=== PATIENT | female | born 1995 | race Caucasian/White ===

== ENCOUNTER 2022-07-26 14:03 | Outpatient (CLI) | payer BC, SELFPAY | END 2022-07-26 14:04 | disposition home or self-care (01) | LOC: NFLDREF 07-28 06:33 | PROVIDERS: PCP Obstetrics & Gynecology; Referring Provider Obstetrics & Gynecology; Visit Provider Obstetrics & Gynecology | DX: Z34.91 Encounter for supervision of normal pregnancy, unspecified, first trimester (principal) | CPT/HCPCS: 84702 ==

== ENCOUNTER 2022-07-28 15:46 | Outpatient (CLI) | payer BC, SELFPAY | END 2022-07-28 15:47 | disposition home or self-care (01) | PROVIDERS: PCP Obstetrics & Gynecology; Referring Provider Obstetrics & Gynecology; Visit Provider Obstetrics & Gynecology | DX: Z34.90 Encounter for supervision of normal pregnancy, unspecified, unspecified trimester (principal); O02.0 Blighted ovum and nonhydatidiform mole | CPT/HCPCS: 84702 ==

== ENCOUNTER 2022-08-03 07:11 | Outpatient (CLI) | payer BC, SELFPAY ==
--- NOTE | 2022-08-03 07:15 | CRLHL7_ITS ---
For Patients: As a result of the Century Cures Act, medical imaging exams and procedure reports are released immediately into your electronic medical record. You may view this report before your referring provider. If you have questions, please contact your health care provider. INDICATION: First trimester scan, establish dates. COMPARISON: No comparison exams at [facility] or [facility]. TECHNIQUE: Real-time young-scale imaging of the pelvis was performed. FINDINGS: Intrauterine gestational sac is present with a mean sac diameter of 14 millimeters, 6 weeks 2 days. 3 millimeter yolk sac is present. No pole. Ovaries appear normal. 2 cm corpus luteal cyst left ovary. Left ovary measures 4.0 x 2.3 x 2.5 cm. Right ovary measures 4.8 x 1.6 x 2.4 cm. No excess pelvic free fluid. No ectopic. IMPRESSION: Intrauterine gestational sac measuring 6 weeks 2 days without pole. Follow-up in 11-14 days recommended. Dictated by Tip Ward MD @ 08/03/2022 11:34:50 AM (Electronically Signed)
== END 2022-08-03 07:12 | disposition home or self-care (01) ==
LOC: US 07:13
PROVIDERS: Visit Provider Obstetrics & Gynecology
DX: Z34.91 Encounter for supervision of normal pregnancy, unspecified, first trimester (principal); Z3A.01 Less than 8 weeks gestation of pregnancy; E28.2 Polycystic ovarian syndrome
CPT/HCPCS: 76817; 84443

== ENCOUNTER 2022-08-13 07:10 | Outpatient (CLI) | payer BC, SELFPAY ==
--- NOTE | 2022-08-13 07:15 | CRLHL7_ITS ---
For Patients: As a result of the Century Cures Act, medical imaging exams and procedure reports are released immediately into your electronic medical record. You may view this report before your referring provider. If you have questions, please contact your health care provider. INDICATION: First trimester scan, establish dates. COMPARISON: 08/03/2022 TECHNIQUE: Real-time young-scale imaging of the pelvis was performed. FINDINGS: Sonographic imaging demonstrates a single living intrauterine gestation. The embryo demonstrates a regular cardiac rate measuring 152 beats per minute. The embryo`s crown-rump length measurement of 0.92 cm corresponds to a gestational age of 7 weeks 0 days with a sonographic due date of 04/01/2023. There is a normal-appearing yolk sac. There are no gross abnormalities noted within the embryo at this early state of development. The gestational sac has a normal appearance. There is no evidence of a perigestational hemorrhage. The amount of fluid within the sac appears appropriate for gestational age. IMPRESSION: Single living intrauterine measuring 7 weeks 0 days and sonographic due date 04/01/2023. Dictated by Tip Ward MD @ 08/13/2022 9:19:44 AM (Electronically Signed)
== END 2022-08-13 07:11 | disposition home or self-care (01) ==
PROVIDERS: Visit Provider Registered Nurse
DX: Z34.91 Encounter for supervision of normal pregnancy, unspecified, first trimester (principal); Z3A.01 Less than 8 weeks gestation of pregnancy
CPT/HCPCS: 76817; 86703; 86803; 86850; 86900; 86901; 87086; 87340

== ENCOUNTER 2022-08-13 09:05 | Outpatient (CLI) | payer BC, SELFPAY | END 2022-08-13 09:06 | disposition home or self-care (01) | PROVIDERS: Visit Provider Advanced Practice Midwife | DX: Z34.91 Encounter for supervision of normal pregnancy, unspecified, first trimester (principal); Z3A.09 9 weeks gestation of pregnancy | CPT/HCPCS: 86592; 86703; 86762; 86787; 86803; 86850; 86900; 86901; 87086; 87340 ==

== ENCOUNTER 2022-11-19 13:09 | Outpatient (CLI) | payer BC, SELFPAY ==
--- NOTE | 2022-11-19 13:00 | CRLHL7_ITS ---
For Patients: As a result of the Century Cures Act, medical imaging exams and procedure reports are released immediately into your electronic medical record. You may view this report before your referring provider. If you have questions, please contact your health care provider. INDICATION: Evaluate anatomy. COMPARISON: 08/13/2022 TECHNIQUE: Real time young scale imaging of the fetus was performed as well as color Doppler analysis of the umbilical vessels. FINDINGS: Sonographic imaging demonstrates a single living intrauterine gestation. Fetus demonstrates a regular cardiac rate of 159 beats per minute. Fetus has a vertex position. The placenta lies anteriorly without evidence of placenta previa. The placental edge is more than 5 cm from the internal cervical os. Amniotic fluid volume appears normal. Single deepest vertical pocket: 4.3 cm. The cervix is closed and measures 4.6 cm in length. The composite ultrasound gestational age is calculated at 21 weeks 5 days with an estimated sonographic due date of 03/27/2023. The estimated weight is 490 grams which lies at the 96th %. The following biometric measurements were obtained: Biparietal diameter: 5.3 cm/22 weeks 0 days 86th% Head circumference: 19.5 cm/21 weeks 5 days 73rd% Abdominal circumference: 18.1 cm/23 weeks 0 days 93rd% Femur length: 3.7 cm/21 weeks 4 days 62nd% The HC/AC ratio measures: 1.08 range (1.06-1.24) On anatomic survey, there is a normal appearance of the cavum septi pellucidi, cisterna magna and cerebellum. The lateral ventricles are not well evaluated due to position. The nose, lips, and facial profile appear normal. The cervical, thoracic and lumbar spine are well visualized and appear normal. There is incomplete visualization of the cardiac structures due to position. The diaphragm and stomach appear normal. The kidneys and bladder also appear normal. There is a normal three-vessel cord and cord insertion site. The four extremities appear normal. IMPRESSION: Concordance of clinical and sonographic dating. Incomplete visualization of the cerebral ventricles and cardiac structures due to position. Short-term follow-up recommended. Remainder of the anatomic survey is normal. Dictated by Tip Ward MD @ 11/20/2022 10:08:58 AM (Electronically Signed)
== END 2022-11-19 13:10 | disposition home or self-care (01) ==
LOC: US 13:10
PROVIDERS: Visit Provider Advanced Practice Midwife
DX: Z34.92 Encounter for supervision of normal pregnancy, unspecified, second trimester (principal); Z3A.21 21 weeks gestation of pregnancy
CPT/HCPCS: 76805

== ENCOUNTER 2022-12-11 08:46 | Outpatient (CLI) | payer BC, SELFPAY ==
--- NOTE | 2022-12-11 08:45 | CRLHL7_ITS ---
For Patients: As a result of the Century Cures Act, medical imaging exams and procedure reports are released immediately into your electronic medical record. You may view this report before your referring provider. If you have questions, please contact your health care provider. INDICATION: Follow-up missed anatomy COMPARISON: 11/19/2022 TECHNIQUE: Real time young scale imaging of the fetus was performed. FINDINGS: Sonographic imaging demonstrates a single living intrauterine gestation. Fetus demonstrates a regular cardiac rate of 159 beats per minute. Fetus has a vertex position. The placenta lies anteriorly. Amniotic fluid volume appears normal. Single deepest vertical pocket: 6.9 cm. Normal cerebral ventricle. There is a normal four-chamber heart view and the left and right ventricular outflow tracts appear normal. IMPRESSION: Normal cerebral ventricle and heart views. Dictated by Tip Ward MD @ 12/11/2022 9:50:44 AM (Electronically Signed)
== END 2022-12-11 08:47 | disposition home or self-care (01) ==
LOC: US 08:47
PROVIDERS: Visit Provider Advanced Practice Midwife
DX: O35.BXX0 Maternal care for other (suspected) fetal abnormality and damage, fetal cardiac anomalies, not applicable or unspecified (principal)
CPT/HCPCS: 76815; 76816

== ENCOUNTER 2023-01-03 10:15 | Outpatient (CLI) | payer BC, SELFPAY | END 2023-01-03 10:16 | disposition home or self-care (01) | LOC: NFLDREF 01-09 05:52 | PROVIDERS: Visit Provider Registered Nurse | DX: Z34.92 Encounter for supervision of normal pregnancy, unspecified, second trimester (principal) | CPT/HCPCS: 86592 ==

== ENCOUNTER 2023-02-04 13:01 | Outpatient (CLI) | payer BC, SELFPAY ==
--- NOTE | 2023-02-04 13:00 | CRLHL7_ITS ---
For Patients: As a result of the Century Cures Act, medical imaging exams and procedure reports are released immediately into your electronic medical record. You may view this report before your referring provider. If you have questions, please contact your health care provider. INDICATION: SIZE GREATER THAN DATES, CHECK GROWTH COMPARISON: 12/11/2022 TECHNIQUE: Real time young scale imaging of the fetus was performed. FINDINGS: Sonographic imaging demonstrates a single living intrauterine gestation. Fetus demonstrates a regular cardiac rate of 144 beats per minute. Fetus has a vertex position. The placenta lies anteriorly. Amniotic fluid volume appears normal and there is a single deepest vertical pocket: 6.5 cm. The estimated weight is 2773gm which lies at the greater than 97th %. On the prior OB ultrasound exam dated 11/19/2022 the estimated weight was at the 96th%. BPD and AC greater than 97th percentile. HC 91st percentile. FL 93rd percentile. The HC/AC ratio measures 0.96 range (0.93-1.09). IMPRESSION: Sonographic gestational age 35 weeks 4 days and sonographic due date of 03/07/2023. Sonographic age is 25 days ahead of the clinical age. Estimated weight greater than 97th percentile. BPD and AC greater than 97th percentile. Dictated by Tip Ward MD @ 02/05/2023 8:34:25 AM (Electronically Signed)
== END 2023-02-04 13:02 | disposition home or self-care (01) ==
LOC: US 13:01
PROVIDERS: Visit Provider Obstetrics & Gynecology
DX: O36.63X0 Maternal care for excessive fetal growth, third trimester, not applicable or unspecified (principal); Z3A.35 35 weeks gestation of pregnancy
CPT/HCPCS: 76816

== ENCOUNTER 2023-02-28 15:59 | Outpatient (CLI) | payer BC, SELFPAY ==
--- NOTE | 2023-02-28 16:00 | CRLHL7_ITS ---
For Patients: As a result of the Century Cures Act, medical imaging exams and procedure reports are released immediately into your electronic medical record. You may view this report before your referring provider. If you have questions, please contact your health care provider. INDICATION: GROWTH, MEASURING LARGE FOR DATES COMPARISON: 12/11/2022 TECHNIQUE: Real time young scale imaging of the fetus was performed. FINDINGS: Sonographic imaging demonstrates a single living intrauterine gestation. Fetus demonstrates a regular cardiac rate of 150 beats per minute. Fetus has a vertex position. The placenta lies anteriorly. Amniotic fluid volume appears normal and there is a single deepest vertical pocket: 7.9 cm. The estimated weight is 4077gm which lies at the greater than 97th %. On the prior OB ultrasound exam dated 11/19/2022 the estimated weight was at the 96th%. BPD and AC greater than 97th percentile. HC 94th percentile. FL 96th percentile. The HC/AC ratio measures 0.89 range (0.88-1.06). IMPRESSION: Sonographic gestational age 38 weeks 3 days and sonographic due date of 03/11/2023. Sonographic age 3 weeks ahead of the clinical age. Estimated weight greater than 97th percentile. Abdominal circumference and BPD greater than 97th percentile. Dictated by Tip Ward MD @ 03/01/2023 12:30:24 PM (Electronically Signed)
== END 2023-02-28 16:00 | disposition home or self-care (01) ==
LOC: US 16:00
PROVIDERS: Visit Provider Obstetrics & Gynecology
DX: O36.63X0 Maternal care for excessive fetal growth, third trimester, not applicable or unspecified (principal); Z3A.38 38 weeks gestation of pregnancy
CPT/HCPCS: 76816

== ENCOUNTER 2023-03-02 17:05 | Inpatient (IN) | payer BC, SELFPAY ==
[2023-03-02] VITALS (40 sets, daily range): BP systolic 87–160; BP diastolic 54–101; PULSE 78–134; RESP 16–146; TEMP 36.4–37.1; O2SAT 95–100; BMI 43.5
[2023-03-02 13:36] LABS: Hemoglobin* 13.1 gm/dL (12.0-16.0); Mean Corpuscular HGB Conc 35 gm/dL (32-36); Mean Corpuscular Hemoglobin 29 pg (26-34); Mean Corpuscular Volume 84 fL (80-100); Platelet Count* 245 K/uL (140-440); Red Blood Count 4.51 m/uL (4.00-5.20); White Blood Count* 10.52 K/uL (4.50-11.00)
[2023-03-02 13:39] LABS: Appearance Urine Clear (Clear); Bilirubin Urine Negative (Negative); Blood Urine Negative (Negative); Color Urine Yellow (Yellow); Glucose Urine Negative (Negative); Ketones Urine Negative (Negative); Leukocyte Esterase Urine Negative (Negative); Nitrite Urine Negative (Negative); Protein Urine Negative (Negative); Specific Gravity Urine 1.015 (1.000-1.030); Urobilinogen Urine 0.2 (0.2-1.0)
[2023-03-02] MEDS: LACTATED RINGERS 1000 ML 1,000 ML IV (13:39)
[2023-03-02 13:41] LABS: Slide Review Reflex No
[2023-03-02 13:53] LABS: Alanine Aminotransferase* 135 U/L (4-35); Aspartate Amino Transferase* 60 U/L (12-35); Blood Urea Nitrogen* 5 mg/dL (5-24); Creatinine* 0.4 mg/dL (0.5-1.5); Estimated Glomerular Filt Rate 138 ml/min
[2023-03-02 14:14] LABS: Total Protein Urine 19 mg/dL
[2023-03-02 14:15] LABS: Creatinine Urine 74.6 mg/dL
[2023-03-02] MEDS: LACTATED RINGERS 1000 ML 1,000 ML 125 ML IV ×2 (15:29→18:25)
--- NOTE | 2023-03-02 15:36 | CRLHL7_ITS ---
For Patients: As a result of the Century Cures Act, medical imaging exams and procedure reports are released immediately into your electronic medical record. You may view this report before your referring provider. If you have questions, please contact your health care provider. INDICATION: ELEVATED ALT/AST IN , EVAL FOR ABRUPTION COMPARISON: 02/28/2023 TECHNIQUE: Real-time young-scale imaging of the pelvis was performed. FINDINGS: Vertex position. Anterior placenta. No abruption. Normal amniotic fluid with single deepest pocket 3.9 cm. heart rate 162 beats per minute. IMPRESSION: No placental abruption. Dictated by Tip Ward MD @ 03/02/2023 5:49:45 PM (Electronically Signed)
--- NOTE | 2023-03-02 15:36 | CRLHL7_ITS ---
For Patients: As a result of the Century Cures Act, medical imaging exams and procedure reports are released immediately into your electronic medical record. You may view this report before your referring provider. If you have questions, please contact your health care provider. INDICATION: Elevated ALT and AST in COMPARISON: None TECHNIQUE: Johnson-scale and color ultrasound of the right upper quadrant to include the liver, gallbladder (or gallbladder fossa), biliary tree, pancreatic head, and right kidney. FINDINGS: Liver: Normal hepatic echogenicity and normal echotexture. The liver is 17 cm in length, slightly enlarged. There are no parenchymal abnormalities to suggest pulmonary infarct. No subcapsular hematomas. No mass. Patent portal vein with normal directional flow. Gallbladder: Cholecystectomy Bile ducts: Not dilated. The common bile duct measures 0.5 mm. Pancreatic head: Obscured by bowel gas. Right Kidney: Renal length: 13 cm Parenchyma: Normal thickness and normal echogenicity. Cyst: None Mass: None Calculi: None Urinary tract: Not dilated. RUQ Ascites: None. IMPRESSION: Very mild hepatomegaly may be a manifestation of HELLP syndrome. Recommend correlation with the patient`s other laboratory values. Dictated by Maggie Ely MD @ 03/02/2023 5:49:19 PM (Electronically Signed)
[2023-03-02 16:18] LABS: Bilirubin Total* 0.5 mg/dL (0.1-1.5); Glucose* 97 mg/dL (60-115); Lactate Dehydrogenase* 202 U/L (120-246); Uric Acid* 3.3 mg/dL (2.2-8.4)
[2023-03-02 16:20] LABS: INR 0.96 (0.91-1.10); Partial Thromboplastin Time* 25 Seconds (23-33); Prothrombin Time 13.4 Seconds
[2023-03-02 16:21] LABS: Fibrinogen* 519 mg/dL (200-450)
[2023-03-02 16:43] LABS: PCR FLU A Negative PCR FLU A (Negative); PCR FLU B Negative PCR FLU B (Negative)
[2023-03-02 16:45] LABS: SARS PCR* Negative SARS-CoV-2 (Negative)
--- NOTE | 2023-03-02 16:57 | PM.OBHPCS1 ---
OB - H&P: HPI History of Present Illness Chief complaint: Maternity Narrative: Robert Jeronimo is a 27 year old [id number] woman at 35 5/7 weeks' gestation by 1st trimester US, MAIRA 04/01/23, who presented to Center today with chief complaint of contractions and back pain. She felt similar to how she had felt when she had onset of labor her first . She developed some diarrhea thereafter, which she attributes to anxiety. Here, she was noted to have elevated BP for the first time this . She has now had several elevated values, the highest systolic 160. She denies YOUNG, visual changes, RUQ pain. She has some swelling in lower extremities and pannus. She has some contractions, but no bleeding or LOF. She has not had HTN in previous . 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 Hx of for arrest of dilation -Desires repeat delivery, scheduled for 03/29/23 2. BMI 37.0 Took ASA until day before admission 3. Varicella non immune -needs vaccine PP -has had multiple booster and always shows non immune. Last in 2019. 4. macrosomia US 02/04/23: cephalic, SDP 6.5, EFW 2773 g, >97%. BPD >97%, HC 91%, AC >97%, FL 93%. 03/01/23: SDP 7.9 cm, cephalic, EFW 4077 g, >97%. BPD and AC >97%. HC 94%. FL 96%. 5. Carpal tunnel R wrist Recommended wrist brace Received Tdap at pharmacy in 3rd trimester Flu: through work Covid: never had, recommended RSV: declined Review of Systems Status of ROS: Reports: 6 or more systems reviewed and unremarkable except as noted in History and below [facility] Medical History (Updated 03/02/23 @ 17:16 by Vanessa Self MD) Cold intolerance ?R68.89 - Other general symptoms and signs (ICD-10) BMI 36.0-36.9,adult ?Z68.36 - Body mass index [BMI] 36.0-36.9, adult (ICD-10) PCOS (polycystic ovarian syndrome) ?E28.2 - Polycystic ovarian syndrome (ICD-10) Surgical History History of cholecystectomy (05/18/13) ?Z90.49 - Acquired absence of other specified parts of digestive tract (ICD-10) History of (09/03/19) ?Z98.891 - History of uterine scar from previous surgery (ICD-10) History of wisdom tooth extraction ?K08.409 - Partial loss of teeth, unspecified cause, unspecified class (ICD-10) Family History Maternal Grandfather Heart disease High blood pressure High cholesterol Obesity Maternal Grandmother Heart disease Thyroid disease High blood pressure High cholesterol Diabetes Paternal Grandfather Colon cancer Social History Narrative: 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, Nurse Work: [employer], 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[place], , 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 Lives with: Isa Wood Pets: Dog Abuse: Denies past/present Special Diet: Denies Ok with a blood transfusion: yes Culture or baptist beliefs: denies RISK FACTORS Exercise Times/wk: Daily walks with daughter, Yes, cardio and weights 3 times per week Depression/Anxiety: no hx Seat Belt Use: Routinely Smoking: Denies past/present Alcohol/day: Denies while Caffeine: not for last 6 months Drug Use: Denies past/present Chicken Pox: vaccinated MRSA: Denies Smoking Status: Never smoker Little interest or pleasure in doing things: not at all Feeling down, depressed, or hopeless: not at all Meds Home Medications and Allergies Home Medications Medication Instructions Recorded Confirmed Type docosahexaenoic acid 200 mg mg PO DAILY 08/13/22 02/18/23 History capsule ( DHA) aspirin 81 mg tablet,delayed 81 mg PO QDAY 11/08/22 03/02/23 History release (Adult Low Dose Aspirin) Allergies Allergy/AdvReac Type Severity Reaction Status Date / Time Sulfa (Sulfonamide Allergy Unknown Verified 03/02/23 15:03 Antibiotics) OB - H&P: Exam Physical Exam: Vital signs: Temp Pulse Resp BP Pulse Ox 98.8 F 125 H 18 139/65 97 03/02/23 12:50 03/02/23 16:11 03/02/23 12:50 03/02/23 16:11 03/02/23 12:50 Narrative: Physical exam: General: No acute distress Psych: Alert and oriented x3, full affect HEENT: Normocephalic, atraumatic Heart: Regular rate and rhythm, no murmur rub or gallop Lungs: Clear to auscultation bilaterally Abdomen: Soft, NT, gravid, continuing edema of pannus noted Lower extremities: 1+ edema bilaterally, no erythema Pelvic exam: Per RN, cervix closed / long tracing: Baseline 155 / accels present / no decels / moderate variability. [place]: Contractions Q 3 min OB - Results Labs Labs: Short CBC 03/02/23 Range/Units 13:28 WBC 10.52 (4.50-11.00) K/uL Hgb 13.1 (12.0-16.0) gm/dL Hct 38.0 (33.0-51.0) % Plt Count 245 (140-440) K/uL BMP 03/02/23 03/02/23 13:28 15:49 BUN 5 Creatinine 0.4 L Glucose 97 Liver Function 03/02/23 03/02/23 Range/Units 13:28 15:49 Total Bilirubin 0.5 (0.1-1.5) mg/dL Direct Bilirubin 0.0 (0.0-0.5) mg/dL AST 60 H (12-35) U/L ALT 135 H (4-35) U/L Urine 03/02/23 Range/Units Unknown Urine Color Yellow (Yellow) Urine Appearance Clear (Clear) Urine pH 7.0 (5.0-8.5) Ur Specific [place] 1.015 (1.000-1.030) Urine Protein Negative (Negative) Urine Glucose (UA) Negative (Negative) protein:creatinine 0.20 Imaging OB US: Attestation: I have reviewed the pertinent imaging results. My impression: Normal placenta - no obvious abruption. cephalic lie Assessment and Plan Assessment and plan (1) Preeclampsia: Problem comment: with severe features by elevation of ALT. BPs with mild elevation. Status: Acute Assessment and Plan: Initiate magnesium sulfate for seizure prophylaxis. HELLP labs Q 6 hours Delivery required today; see below. (2) macrosomia: Status: Acute Assessment and Plan: No GDM, normal blood glucose today. (3) History of : Problem comment: [facility], arrest of dilation, girl, 8 lb 0 oz, 39 weeks 5 days gestation. Status: Acute Assessment and Plan: Delivery by repeat today. We discussed risks of procedure, including bleeding / hemorrhage, infection, damage to internal organs, VTE. Consent form reviewed with and signed by patient. We discussed likely post-op restrictions and precautions. We also discucussed the possibility of transfer given late . (4) BMI 36.0-36.9,adult: Status: Acute Assessment and Plan: Lovenox postoperatively. Plan to use silver dressing.
[2023-03-02] MEDS: MAGNESIUM IV 4 GM/100 ML PIGGYBACK IVPB (17:24)
[2023-03-02] MEDS: CEFAZOLIN 1 GM inj 3 GM IVP (18:35)
[2023-03-02 18:42] LABS: Immature Reticulocyte Fraction 12.1 % (3.0-15.9); Reticulocytes Absolute 0.09 # (0.03-0.08)
--- NOTE | 2023-03-02 19:41 | PM.OBPRCCS ---
OB Delivery Proc Additional Procedures Tubal Ligation at the time of : No Procedure Date of procedure: 03/02/23 Pre-op diagnosis: 35 5/7 weeks' gestation; preeclampsia with severe features; previous delivery Post-op diagnosis: same Procedure Done: Global Will [facility] bill your pro fee for this procedure?: Yes Blood Loss Measurement Type: QBL (680) Bakri Used: No IV fluids (mL): 1,400 Surgeon: Vanessa Self MD Anesthesia Type: Spinal Findings: 1. Female , cephalic OA presentation, Apgars of 7 and 7, weight 3820 g, or 8 lb, 7 oz. 2. Normal appearance to uterus and bilateral tubes. Ovaries bilaterally enlarged but otherwise normal appearance. Procedure Name: Repeat low-transverse Procedure Description: Patient was taken to the operating room with IV running. She received cefazolin in preoperative prophylaxis. Spinal anesthesia was administered. Wellington catheter was inserted. She was prepped and draped in the usual sterile fashion. Anesthesia was tested and found to be adequate. A low-transverse skin incision was made with a scalpel and carried through to the underlying layer of fascia with the scalpel. The subcutaneous fat was dissected off the underlying fascia with Bovie. The fascia was nicked in the midline with a scalpel, and this incision was extended laterally with scissors. The fascia was dissected off the underlying rectus with Bovie, both superiorly and inferiorly. The rectus muscles were in the midline. Peritoneum was identified and entered bluntly. Bovie was used to widen this opening laterally. The bladder reflection was found to be advanced along the lower uterine segment. A bladder flap was created with a combination of sharp and blunt dissection. Low-transverse uterine incision was made with a scalpel. Incision was widened bluntly. The infant's head was grasped through the hysterotomy and delivered with the help of fundal pressure. The remainder of the body delivered without incident. Cord was clamped and cut after 30 seconds. was handed off to attending nurses. The placenta was delivered with gentle traction on the cord. The uterus was exteriorized and cleaned of all clots and debris with the dry lap pad. The hysterotomy was reapproximated with 0 Vicryl in a running, locked fashion. Second layer of the same suture was used in imbricating fashion. The adnexa were examined and noted to be normal in appearance. The uterus was returned to the abdomen. The cul-de-sac and gutters were cleansed with dampened laparotomy sponge, removing any further clots and debris. The hysterotomy was reexamined and two [id number] sutures were used to obtain hemostasis. The peritoneum was reapproximated with 2 0 Vicryl in a running fashion. The rectus muscles were examined and Bovie used on oozing vessels. The fascia was reapproximated with 0 Vicryl in a running fashion. Subcutaneous fat was irrigated and Bovie used on oozing vessels. The subcutaneous fat was reapproximated with 2 0 plain gut suture in an interrupted fashion. The skin was closed with a subcuticular stitch of 4-0 Monocryl. Silver dressing was applied above this. Patient tolerated procedure well was taken to recovery area in stable condition. Complications: None Pathology: specimen obtained, sent to pathology (Placenta.) Surgery Debrief Performed: Yes Surgery Debrief Comment: Confirmed placenta to be sent to pathology Condition: stable Disposition: floor
--- NOTE | 2023-03-02 20:06 | W.PM.NB ---
Nerve Block Nerve Block Time Seen by Provider: 19:48 Type of block requested by surgeon for post-operative analgesia: TAP Side: bilateral Time out performed: Yes Verification of patient name: Yes Verification of date of : Yes Site marking: site marked Name of person performing procedure: erica vladimir Continuous monitoring Was continuous monitoring of O2 sat, B/P, data virtualization consultant, recorded every 15 minutes?: Yes Procedure Checklist: sterile prep, needles and gloves Ultrasound guided. Images saved: Yes Medications given in 5ml increments after negative aspiration: Marcaine %: 0.25 mL: 30 and Exparel mL: 10 Needle gauge: 21 Patient tolerated procedure well: Yes Block Charges Block Charge (with Pro Fee): TAP Bilateral Use of Ultrasound Machine for Block: Yes- US Guidance/pain block
--- NOTE | 2023-03-02 20:07 | P.ANES_ITS ---
Anesthesia Charges Start Date/Time Anesthesia Start Date: 03/02/23 Anesthesia Start Time: 18:25 Stop Date/Time Anesthesia Stop Date: 03/02/23 Anesthesia Stop Time: 19:59 Summary Emergency: [facility] [employer]
[2023-03-02] MEDS: ACETAMINOPHEN 500 MG TABLET 1000 MG PO (21:52)
[2023-03-02 23:44] LABS: Hematocrit 36.3 % (33.0-51.0); Hemoglobin* 12.4 gm/dL (12.0-16.0); Mean Corpuscular HGB Conc 34 gm/dL (32-36); Mean Corpuscular Hemoglobin 29 pg (26-34); Mean Corpuscular Volume 85 fL (80-100); Platelet Count* 269 K/uL (140-440); Red Blood Count 4.27 m/uL (4.00-5.20); White Blood Count* 17.45 K/uL (4.50-11.00)
[2023-03-02 23:47] LABS: Slide Review Reflex No
[2023-03-02] MEDS: ONDANSETRON 2 MG/ML inj 4 MG IVP (23:50)
[2023-03-02 23:59] LABS: Alanine Aminotransferase* 154 U/L (4-35); Aspartate Amino Transferase* 84 U/L (12-35); Blood Urea Nitrogen* 4 mg/dL (5-24); Creatinine* 0.4 mg/dL (0.5-1.5); Est. Creatinine Clearance* 196.02; Estimated Glomerular Filt Rate 138 ml/min
[2023-03-03 00:49] VITALS: BP 114/73; PULSE 112; RESP 16; TEMP 36.6; O2SAT 97
[2023-03-03] MEDS: KETOROLAC 30 MG/ML inj IVP ×4 (01:13→19:31)
[2023-03-03 04:17] VITALS: BP 106/66; PULSE 99; RESP 16; TEMP 36.3; O2SAT 97
[2023-03-03] MEDS: ACETAMINOPHEN 500 MG TABLET 1000 MG PO ×2 (04:23→12:26)
[2023-03-03 05:43] LABS: Hematocrit 32.8 % (33.0-51.0); Hemoglobin* 11.1 gm/dL (12.0-16.0); Mean Corpuscular HGB Conc 34 gm/dL (32-36); Mean Corpuscular Hemoglobin 29 pg (26-34); Mean Corpuscular Volume 86 fL (80-100); Platelet Count* 236 K/uL (140-440); Red Blood Count 3.81 m/uL (4.00-5.20); White Blood Count* 12.54 K/uL (4.50-11.00)
[2023-03-03 05:50] LABS: Slide Review Reflex No
[2023-03-03 05:58] LABS: Creatinine* 0.5 mg/dL (0.5-1.5); Est. Creatinine Clearance* 156.82; Estimated Glomerular Filt Rate 131 ml/min
[2023-03-03 05:59] LABS: Alanine Aminotransferase* 154 U/L (4-35); Aspartate Amino Transferase* 77 U/L (12-35); Blood Urea Nitrogen* 6 mg/dL (5-24)
[2023-03-03 07:39] VITALS: BP 112/73; PULSE 104; RESP 16; TEMP 36.8; O2SAT 98
[2023-03-03] MEDS: ENOXAPARIN 40 MG/0.4 ML INJ SUBCUT (08:34)
--- NOTE | 2023-03-03 08:43 | PM.OBPNVD1 ---
OB - PN:Subj Subjective Date Seen: 03/03/23 Interval history: Robert is a 27-year-old G2 now P 1-1-0-2 woman who is postoperative day 1 status post repeat delivery at 35 weeks, 5 days gestation in the setting of preeclampsia with severe features. OB Problem List: 1. Hx of for arrest of dilation -Desires repeat delivery, scheduled for 03/29/23 2. BMI 37.0 Took ASA until day before admission 3. Varicella non immune -needs vaccine PP -has had multiple booster and always shows non immune. Last in 2019. 4. macrosomia US 02/04/23: cephalic, SDP 6.5, EFW 2773 g, >97%. BPD >97%, HC 91%, AC >97%, FL 93%. 03/01/23: SDP 7.9 cm, cephalic, EFW 4077 g, >97%. BPD and AC >97%. HC 94%. FL 96%. 5. Carpal tunnel R wrist Recommended wrist brace Narrative: Robert has been having some nausea and vomiting, and has been unable to eat since last night. She has received Zofran, and is now receiving IV omeprazole. She has ambulated once. She denies any pain. She had catheter removed, and is urinating without difficulty. She denies any headache, chest pressure, shortness of breath, or flashing. OB - PN: Obj Exam Physical Exam: Vital signs: Temp Pulse Resp BP Pulse Ox O2 Del Method 98.2 F 104 H 16 112/73 98 Room Air 03/03/23 07:39 03/03/23 07:39 03/03/23 07:39 03/03/23 07:39 03/03/23 07:39 03/03/23 07:39 In general, she has been normotensive but slightly tachycardic since last night. Fluid balance in the last 24 hours is positive 1150. Narrative: General: Pleasant, no acute distress Heart: Regular rate and rhythm, no murmur or gallop Lungs: Clear to auscultation bilaterally Abdomen: Silver dressing clean, dry, and intact. Hypoactive bowel sounds. Soft, nontender, fundus well below umbilicus. Edema of pannus noted. Lower extremities: Trace bilateral edema, no erythema Neuro: Patellar DTR 2+ on right LE Urinary Catheter Management: Urethral: Cath placed during this visit: yes, but has since been removed by the nurse Reason for continuing: surgical procedure Insertion date: 03/02/23 Insertion time: 18:35 Removal date: 03/02/23 Removal time: 23:25 OB - PN: Obj Data Labs Labs: Laboratory Results - last 24 hr 03/02/23 03/02/23 03/02/23 13:28 15:40 15:49 WBC 10.52 RBC 4.51 Hgb 13.1 Hct 38.0 MCV 84 MCH 29 MCHC 35 Plt Count 245 Absolute Retic 0.09 H Percent Retic 2.0 Immature Retic Fraction 12.1 Retic Hgb Equivalent 30.0 INR 0.96 APTT 25 Fibrinogen 519 H BUN 5 Creatinine 0.4 L Estimated Creat Clear Estimated GFR 138 Glucose 97 Uric Acid 3.3 Total Bilirubin 0.5 Direct Bilirubin 0.0 AST 60 H ALT 135 H Lactate Dehydrogenase 202 Urine Color Urine Appearance Urine pH Ur Specific [place] Urine Protein Urine Glucose (UA) Urine Ketones Urine Blood Urine Nitrite Urine Bilirubin Urine Urobilinogen Ur Leukocyte Esterase Urine Creatinine Protein/Creatinin Ratio Urine Total Protein SARS-CoV-2 (PCR) Negative SARS-CoV-2 Influenza Type A (PCR) Negative PCR FLU A Influenza Type B (PCR) Negative PCR FLU B Blood Type A Positive Antibody Screen NEGATIVE 03/02/23 03/02/23 03/03/23 23:35 Unknown 05:35 WBC 17.45 H 12.54 H RBC 4.27 3.81 L Hgb 12.4 11.1 L Hct 36.3 32.8 L MCV 85 86 MCH 29 29 MCHC 34 34 Plt Count 269 236 Absolute Retic Percent Retic Immature Retic Fraction Retic Hgb Equivalent INR APTT Fibrinogen BUN 4 L 6 Creatinine 0.4 L 0.5 Estimated Creat Clear 196.02 156.82 Estimated GFR 138 131 Glucose Uric Acid Total Bilirubin Direct Bilirubin AST 84 H 77 H ALT 154 H 154 H Lactate Dehydrogenase Urine Color Yellow Urine Appearance Clear Urine pH 7.0 Ur Specific [place] 1.015 Urine Protein Negative Urine Glucose (UA) Negative Urine Ketones Negative Urine Blood Negative Urine Nitrite Negative Urine Bilirubin Negative Urine Urobilinogen 0.2 Ur Leukocyte Esterase Negative Urine Creatinine 74.6 Protein/Creatinin Ratio 0.20 H Urine Total Protein 19 SARS-CoV-2 (PCR) Influenza Type A (PCR) Influenza Type B (PCR) Blood Type Antibody Screen OB - PN: A/P Delivery Assessment and Plan (1) Preeclampsia: Problem details: with severe features by elevation of ALT. BPs with mild elevation. Status: Acute Assessment and Plan: Normotensive since delivery. Transaminases are stable at this time. All other HELLP labs are normal. Continue magnesium sulfate until 24 hours . Continue Lovenox daily until she is discharged. (2) Status post repeat low transverse section: Status: Acute Assessment and Plan: Uncomplicated procedure. She has silver dressing placed, to be left in-situ for 7 days. Plan day: 1
[2023-03-03] MEDS: PANTOPRAZOLE SODIUM 40 MG INJ IVP (09:18)
[2023-03-03] MEDS: SCOPOLAMINE 1 MG/3 DAY PATCH 1 PATCH TRANSDERMA (09:23)
[2023-03-03 11:31] LABS: Hematocrit 34.1 % (33.0-51.0); Hemoglobin* 11.4 gm/dL (12.0-16.0); Mean Corpuscular HGB Conc 33 gm/dL (32-36); Mean Corpuscular Hemoglobin 29 pg (26-34); Mean Corpuscular Volume 86 fL (80-100); Platelet Count* 271 K/uL (140-440); Red Blood Count 3.96 m/uL (4.00-5.20); White Blood Count* 11.77 K/uL (4.50-11.00)
[2023-03-03 11:40] LABS: Slide Review Reflex No
[2023-03-03 11:46] LABS: Alanine Aminotransferase* 153 U/L (4-35); Aspartate Amino Transferase* 83 U/L (12-35); Blood Urea Nitrogen* 7 mg/dL (5-24); Creatinine* 0.5 mg/dL (0.5-1.5); Est. Creatinine Clearance* 156.82; Estimated Glomerular Filt Rate 131 ml/min
[2023-03-03 12:19] VITALS: BP 108/71; PULSE 92; RESP 16; TEMP 36.1; O2SAT 99
[2023-03-03 15:23] VITALS: BP 100/65; PULSE 96; RESP 16; TEMP 36.6; O2SAT 97
[2023-03-03 17:40] LABS: Hematocrit 32.9 % (33.0-51.0); Hemoglobin* 11.2 gm/dL (12.0-16.0); Mean Corpuscular HGB Conc 34 gm/dL (32-36); Mean Corpuscular Hemoglobin 29 pg (26-34); Mean Corpuscular Volume 86 fL (80-100); Platelet Count* 259 K/uL (140-440); Red Blood Count 3.84 m/uL (4.00-5.20); White Blood Count* 10.83 K/uL (4.50-11.00)
[2023-03-03 17:49] LABS: Slide Review Reflex No
[2023-03-03 17:56] LABS: Alanine Aminotransferase* 144 U/L (4-35); Aspartate Amino Transferase* 72 U/L (12-35); Blood Urea Nitrogen* 8 mg/dL (5-24); Creatinine* 0.5 mg/dL (0.5-1.5); Est. Creatinine Clearance* 156.82; Estimated Glomerular Filt Rate 131 ml/min
[2023-03-03] MEDS: LACTATED RINGERS 500 ML 500 ML IV (19:05)
[2023-03-03 19:35] VITALS: BP 107/69; PULSE 93; RESP 16
[2023-03-04] VITALS (7 sets, daily range): BP systolic 107–121; BP diastolic 72–77; PULSE 88–103; RESP 16; TEMP 36.5–37.2; O2SAT 97–98
[2023-03-04] MEDS: KETOROLAC 30 MG/ML inj IVP (01:19)
[2023-03-04] MEDS: ENOXAPARIN 40 MG/0.4 ML INJ SUBCUT (05:49)
[2023-03-04 06:20] LABS: Hematocrit 32.4 % (33.0-51.0); Hemoglobin* 10.8 gm/dL (12.0-16.0); Mean Corpuscular HGB Conc 33 gm/dL (32-36); Mean Corpuscular Hemoglobin 29 pg (26-34); Mean Corpuscular Volume 88 fL (80-100); Platelet Count* 270 K/uL (140-440); Red Blood Count 3.68 m/uL (4.00-5.20); White Blood Count* 10.32 K/uL (4.50-11.00)
[2023-03-04 06:27] LABS: Slide Review Reflex No
[2023-03-04 06:35] LABS: Alanine Aminotransferase* 117 U/L (4-35); Aspartate Amino Transferase* 52 U/L (12-35); Blood Urea Nitrogen* 13 mg/dL (5-24); Creatinine* 0.7 mg/dL (0.5-1.5); Est. Creatinine Clearance* 112.01; Estimated Glomerular Filt Rate 121 ml/min; Uric Acid* 4.7 mg/dL (2.2-8.4)
--- NOTE | 2023-03-04 08:09 | PM.OBPNVD1 ---
OB - PN:Subj Subjective Date Seen: 03/04/23 Interval history: Robert is a 27-year-old G2 now P 1-1-0-2 woman who is postoperative day 1 status post repeat delivery at 35 weeks, 5 days gestation in the setting of preeclampsia with severe features. OB Problem List: 1. Hx of for arrest of dilation -Desires repeat delivery, scheduled for 03/29/23 2. BMI 37.0 Took ASA until day before admission 3. Varicella non immune -needs vaccine PP -has had multiple booster and always shows non immune. Last in 2019. 4. macrosomia US 02/04/23: cephalic, SDP 6.5, EFW 2773 g, >97%. BPD >97%, HC 91%, AC >97%, FL 93%. 03/01/23: SDP 7.9 cm, cephalic, EFW 4077 g, >97%. BPD and AC >97%. HC 94%. FL 96%. 5. Carpal tunnel R wrist Recommended wrist brace Patient comments OB post-: no complaints, pain well controlled, tolerating diet and flatus present infant status: (with SNS) and doing well [place] feeding status: exclusively (with SNS) Narrative: The patient feels well.? The pain is well controlled with current medications.? She has no new complaints.? Urinary output is adequate and she is voiding without difficulty.? Has a good appetite, is tolerating a general diet, is passing flatus, and has had a bowel movement.? Has scant amount of rubra lochia since she passed a clot yesterday.? She is ambulating well. She is and states that it is going much better then with her last child. Previously her milk didn't come in until day 10 PP so she is supplementing formula with SNS feedings.?Her blood pressures have been WNL and she denies any signs or symptoms. She states that her swelling is decreasing. She would like to stay until tomorrow to make sure her blood pressures stay WNL and since her last child was jaundiced requiring phototherapy. OB - PN: Obj Exam Physical Exam: Vital signs: Temp Pulse Resp BP Pulse Ox O2 Del Method 98.3 F 101 H 16 110/73 97 Room Air 03/04/23 05:45 03/04/23 05:45 03/04/23 05:45 03/04/23 05:45 03/03/23 15:23 03/04/23 05:45 Narrative: GENERAL APPEARANCE:? normal affect, alert, no distress? MOOD:? appropriate? CHEST:? clear to auscultation, slightly diminished? HEART:? regular rate and rhythm? ABDOMEN:? soft, non-tender the uterine fundus is 2 cm Below Umbilicus, Midline and is appropriate for the stage of recovery. Incision is covered with silver dressing that is dry and intact. There is some drainage that was marked. EXTREMITIES:? normal and no edema? Urinary Catheter Management: Urethral: Cath placed during this visit: yes, but has since been removed by the nurse Reason for continuing: surgical procedure Insertion date: 03/02/23 Insertion time: 18:35 Removal date: 03/02/23 Removal time: 23:25 OB - PN: Obj Data Labs Labs: Laboratory Results - last 24 hr 03/03/23 03/03/23 03/04/23 11:25 17:33 05:40 WBC 11.77 H 10.83 10.32 RBC 3.96 L 3.84 L 3.68 L Hgb 11.4 L 11.2 L 10.8 L Hct 34.1 32.9 L 32.4 L MCV 86 86 88 MCH 29 29 29 MCHC 33 34 33 Plt Count 271 259 270 BUN 7 8 13 Creatinine 0.5 0.5 0.7 Estimated Creat Clear 156.82 156.82 112.01 Estimated GFR 131 131 121 Uric Acid 4.7 AST 83 H 72 H 52 H ALT 153 H 144 H 117 H OB - PN: A/P Delivery Assessment and Plan (1) Preeclampsia: Problem details: with severe features by elevation of ALT. BPs with mild elevation. Status: Acute (2) Status post repeat low transverse section: Status: Acute (3) BMI 36.0-36.9,adult: Status: Acute Plan day: 2 Plan: routine care Comments: 1. Anticipate discharge tomorrow. 2. Continue blood pressure monitoring. Consider labs is blood pressure elevated or she develops s/sx.?
[2023-03-04] MEDS: IBUPROFEN 600 MG TABLET PO ×3 (09:17→23:52)
[2023-03-05 00:21] LABS: Appearance Urine Slightly Cloudy (Clear); Bilirubin Urine Negative (Negative); Blood Urine 3+ (Negative); Color Urine Yellow (Yellow); Glucose Urine Negative (Negative); Ketones Urine Negative (Negative); Leukocyte Esterase Urine Negative (Negative); Nitrite Urine Negative (Negative); Protein Urine 2+ (Negative); Specific Gravity Urine <= 1.005 (1.000-1.030); Urobilinogen Urine 0.2 (0.2-1.0)
[2023-03-05 00:30] LABS: Bacteria Urine Few; Squamous Epithelial Cell Urine Few (None-Few); WBC Urine 0-2 (0-5)
[2023-03-05 05:19] LABS: Hematocrit 32.2 % (33.0-51.0); Hemoglobin* 10.8 gm/dL (12.0-16.0); Mean Corpuscular HGB Conc 34 gm/dL (32-36); Mean Corpuscular Hemoglobin 29 pg (26-34); Mean Corpuscular Volume 87 fL (80-100); Platelet Count* 233 K/uL (140-440); Red Blood Count 3.69 m/uL (4.00-5.20); White Blood Count* 7.43 K/uL (4.50-11.00)
[2023-03-05 05:21] LABS: Slide Review Reflex No
[2023-03-05 05:39] LABS: Alanine Aminotransferase* 89 U/L (4-35); Aspartate Amino Transferase* 39 U/L (12-35); Creatinine* 0.6 mg/dL (0.5-1.5); Est. Creatinine Clearance* 130.68; Estimated Glomerular Filt Rate 125 ml/min
[2023-03-05 06:01] VITALS: BP 125/76; PULSE 91; RESP 16
[2023-03-05] MEDS: ENOXAPARIN 40 MG/0.4 ML INJ SUBCUT (06:02)
--- NOTE | 2023-03-05 07:42 | PM.OBDSVD1 ---
DS: Providers Provider Time Seen by Provider: 08:30 Date Seen: 03/05/23 Date of admission: 03/02/23 17:05 Primary care physician: Not a Local Provider Admitting Clinician: Vanessa Self MD Attending Physician on discharge: Vanessa Self MD Date of Discharge: 03/05/23 DS: Diagnosis Discharge Diagnosis (1) Status post repeat low transverse section: Status: Acute (2) Lactating mother: Status: Acute (3) Preeclampsia: Status: Acute Problem details: with severe features by elevation of ALT. BPs with mild elevation. Exam Narrative: Exam Narrative: VSS. ?Afebrile GENERAL APPEARANCE: ?normal affect, alert, no distress MOOD: ?appropriate HEENT: normocephalic, neck supple, full ROM CHEST: ?Symmetrical chest wall movement. ?Normal respiratory effort. ?Clear to auscultation HEART: ?regular rate and rhythm ABDOMEN: ?soft, non-tender. Uterine fundus is firm, at Umbilicus, Midline and is appropriate for the stage of recovery. ?Bowel sounds present. EXTREMITIES: ?normal and trace edema SKIN: warm, dry. ?Dressing on, intact. ?Some shadowing noted. No signs of infection noted. Const: Vital Signs, click to edit/add: Vital Signs - 24 hr 03/04/23 07:52 03/04/23 12:12 03/04/23 16:31 Temperature 98.1 F 98.5 F 98.5 F Pulse Rate [Pulse Oximeter] 88 91 97 Respiratory Rate 16 16 16 Blood Pressure [Ri ght Arm] 120/77 113/75 107/72 Pulse Oximetry 98 98 97 Oxygen Delivery Me thod Room Air Room Air Room Air 03/04/23 20:45 03/04/23 23:45 03/05/23 06:01 Temperature 97.8 F 97.7 F Pulse Rate [Pulse Oximeter] 91 91 91 Respiratory Rate 16 16 16 Blood Pressure [Ri ght Arm] 112/76 113/74 125/76 Pulse Oximetry Oxygen Delivery Me thod Room Air Room Air Room Air OB - DS: Summary Hospital Course Hospital Course: Robert is a 27 y.o. G 2 P 2 who was admitted to [facility] for labor & repeat . ?She had a complicated by severe preeclampsia requiring magnesium sulfate. The patient feels well. ?The pain is well controlled with current medications. ?She has no new complaints. ?She is breast feeding and reports things are going well.? the patient has done well.? Vitals have been stable.? She has remained afebrile.? Has a good appetite, is tolerating a general diet. ?She is voiding without difficulty.? She is passing gas and has had a bowel movement.? She is ambulating and denies any dizziness.? Has Small amount of rubra lochia. She is planning condoms, partner vasectomy for prevention. Problems: Severe preeclampsia requiring magnesium sulfate plan: Discharge home with baby. Follow up in 2 weeks and 6 weeks. , may follow up with if needed Severe preeclampsia -Labs trending down. BPs WNL. Consulted deborah Bojorquez to discharge home -Follow up in 3 days for repeat labs to confirm they continue to trend down and for a BP check Declined narcotic pain medication for post op. Is aware to call if needed. Peripartum Data Infant delivery method: Primary C/S; Labored Procedures: Procedures Operation Date: 03/02/23 18:15 Actual Procedure Side Surgeon p Section Not Applicable Vanessa Self MD complications: none Infant Gender: Male Infant Discharge Plan: Home Status at Discharge Functional status at discharge: independent ambulation Overall status at discharge: patient is progressing back to baseline Time Spent with Patient Time attestation: Total time spent providing and/or coordinating discharge services: Time spent: Less than 30 minutes Discharge Plan Discharge Disposition: Home, Self-Care Date of Admission: 03/02/23 17:05 Primary Care Provider: Provider,Not a Local Condition: Stable Anticipated Discharge Date/Time: 03/05/23 10:00 Discharge Medications: New docusate sodium 100 mg Capsule 100 mg PO BID PRNQty: 100 0RF Rx Instructions: Take 1 cap 1-2 times a day as needed for constipation ibuprofen 600 mg Tablet 600 mg PO Q6H PRN (Reason: Pain) Qty: 60 0RF Continued DHA 200 mg capsule 200 mg PO DAILY Discontinued aspirin [Adult Low Dose Aspirin] 81 mg tablet,delayed release (DR/EC) 81 mg PO QDAY Discharge Orders: Discharge Order (Routine); Ordered 03/05/23 Ordered By: Herminia Nagy Patient Education: OB Over the Counter Medication Information, OB /Breast Feeding Additional Instructions: Follow up in 3 days in clinic for a blood pressure check and repeat labs to confirm that they are trending down. Follow up at 2 weeks and 6 weeks. Remove bandage 7 days after surgery. May be seen in the clinic if you have concerns. Continue to check your blood pressure twice a day. Call if 140/90 or higher. Call if symptoms occur - headache, vision changes, pain on your right side where your ribs end. Activity Level: Activity as Tolerated Discharge Diet: Regular Follow Up Appointments: Provider,Not a Local [Primary Care Provider] - Forms: [employer] Info Instructions
[2023-03-05 08:09] VITALS: BP 118/74; PULSE 85; RESP 16; TEMP 36.8; O2SAT 96
[2023-03-05 17:36] LABS: Hep A Ab, IgM Negative (Negative); Hep B Core Ab, IgM Negative (Negative); Hep B Surface Antigen Negative (Negative); Hep C Ab by CIA Index 0.03 IV; Hep C Ab by CIA Interp Negative (Negative)
[2023-03-06 00:11] LABS: Haptoglobin 71 mg/dL (30-200)
== END 2023-03-05 13:00 | disposition home or self-care (01) | DRG 540 ==
LOC: OB OUT 17:14 → OB 17:15
PROVIDERS: Advanced Practice Midwife; Obstetrics & Gynecology; Admitting Provider Obstetrics & Gynecology; Visit Provider Obstetrics & Gynecology
PROC: 10D00Z1 Extraction of Products of Conception, Low, Open Approach (ICD-10-PCS; CPT 59514; principal; 2023-03-02 18:00)
DX: O14.14 Severe pre-eclampsia complicating childbirth (principal); O34.211 Maternal care for low transverse scar from previous cesarean delivery; O60.14X0 Preterm labor third trimester with preterm delivery third trimester, not applicable or unspecified; O36.63X0 Maternal care for excessive fetal growth, third trimester, not applicable or unspecified; Z37.0 Single live birth; O99.284 Endocrine, nutritional and metabolic diseases complicating childbirth; E28.2 Polycystic ovarian syndrome; Z3A.35 35 weeks gestation of pregnancy; G89.18 Other acute postprocedural pain
CPT/HCPCS: 1961; 36415; 51798; 64488; 76705; 76815; 76942; 80074; 81001; 81003; 82247; 82248; 82565; 82570; 82947; 83010; 83615; 84156; 84450; 84460; 84520; 84550; 85027; 85045; 85384; 85610; 85730; 86850; 86900; 86901; 87086; 87631; 88307; 99140; A9270; C9113; C9290; J0665; J0690; J1100; J1650; J1885; J2274; J2371; J2405; J2590; J3475; J7120

== ENCOUNTER 2023-03-08 11:08 | Outpatient (CLI) | payer BC, SELFPAY | END 2023-03-08 11:09 | disposition home or self-care (01) | PROVIDERS: PCP Obstetrics & Gynecology; Visit Provider Obstetrics & Gynecology | DX: O14.93 Unspecified pre-eclampsia, third trimester (principal); Z3A.36 36 weeks gestation of pregnancy | CPT/HCPCS: 82565; 84450; 84460; 99283; A9270 ==

== ENCOUNTER 2023-03-08 22:28 | Emergency (ER) | payer BC, SELFPAY ==
[2023-03-08 22:41] VITALS: BP 138/85; PULSE 87; RESP 16; TEMP 36.6; O2SAT 98; BMI 40.2
[2023-03-08 22:52] VITALS: PULSE 99; O2SAT 98
[2023-03-08 23:00] VITALS: PULSE 95; O2SAT 99
[2023-03-08 23:01] VITALS: BP 124/79; PULSE 97; O2SAT 99
--- NOTE | 2023-03-08 23:05 | ED_ITS ---
HPI - General Adult General Chief complaint: Hypertension Stated complaint: High Blood Pressure Time Seen by Provider: 03/08/23 22:50 History of Present Illness HPI narrative: Patient is a 27-year-old woman who had her 2nd baby 6 days ago. She went to C- section at that time due to the abrupt onset of preeclampsia near term. Patient's blood pressures been mildly elevated but has actually been coming down. She went and saw her OB provider today and her blood pressure was normal. She does have some evidence of transaminitis which is trending slightly up. Tonight her blood pressures at home were in the 155/105 range. Patient remains somewhat edematous in her lower extremities and face. She has had no vaginal bleeding no abdominal pain no fevers no chills no night sweats. She has otherwise been healing from her . Related Data Previous Rx's Medication Instructions Recorded labetalol 100 mg tablet 100 mg PO BID Hypertension #30 tabs 03/08/23 Allergies Allergy/AdvReac Type Severity Reaction Status Date / Time Sulfa (Sulfonamide Allergy Unknown Verified 03/08/23 22:48 Antibiotics) Review of Systems Status of ROS: Reports: 10 or more systems reviewed and unremarkable except as noted in History and below [facility] Medical History macrosomia Cold intolerance ?R68.89 - Other general symptoms and signs (ICD-10) BMI 36.0-36.9,adult ?Z68.36 - Body mass index [BMI] 36.0-36.9, adult (ICD-10) PCOS (polycystic ovarian syndrome) ?E28.2 - Polycystic ovarian syndrome (ICD-10) Surgical History History of cholecystectomy (05/18/13) ?Z90.49 - Acquired absence of other specified parts of digestive tract (ICD- 10) History of (09/03/19) ?Z98.891 - History of uterine scar from previous surgery (ICD-10) History of wisdom tooth extraction ?K08.409 - Partial loss of teeth, unspecified cause, unspecified class (ICD- 10) Family History Maternal Grandfather Heart disease High blood pressure High cholesterol Obesity Maternal Grandmother Heart disease Thyroid disease High blood pressure High cholesterol Diabetes Paternal Grandfather Colon cancer Social History Narrative: 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, 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: [employer], 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[place], , 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 Lives with: Isa Wood Pets: Dog Abuse: Denies past/present Special Diet: Denies Ok with a blood transfusion: yes Culture or scientology beliefs: denies RISK FACTORS Exercise Times/wk: Daily walks with daughter, Yes, cardio and weights 3 times per week Depression/Anxiety: no hx Seat Belt Use: Routinely Smoking: Denies past/present Alcohol/day: Denies while Caffeine: not for last 6 months Drug Use: Denies past/present Chicken Pox: vaccinated MRSA: Denies What is your current living situation?: I presently have a place to live Problems where you live: no known problems In the past 12 months, utilities in danger of being shut off: no In past 12 months, lack of transportation kept you from medical appts, meetings, work, or getting things needed for daily living: no In the past 12 mos, have been you worried that your food would run out before you had money to buy more?: never true In the past 12 mos, the food you bought just didn't last and you didn't have money to buy more?: never true Smoking Status: Never smoker Do you use any of these nicotine containing products: None Second hand tobacco smoke exposure: No How often do you have a drink containing alcohol: never AUDIT-C Alcohol total score: 0 Non-prescribed substance use: denies use How often does anyone, including family, friends and others, physically hurt you : never How often does anyone, including family, friends and others, insult or talk down to you: never How often does anyone, including family, friends and others, threaten you with harm: never How often does anyone, including family, friends and others, scream or curse at you: never Little interest or pleasure in doing things: not at all Feeling down, depressed, or hopeless: not at all Exam Narrative: Exam Narrative: EXAM GENERAL: Patient appears comfortable and well. EYES: No scleral icterus. LYMPH: No supraclavicular or cervical lymphadenopathy. SKIN: Visible skin seen during exam normal or with benign process only. EXT: Mild edema on lower extremities HEART: Regular rate and rhythm with no murmurs, rubs, or gallops. LUNGS: Clear to auscultation bilaterally with no crackles or wheezes. ABD: Soft, non tender, non distended. PSYCH: Good eye contact, speech is not pressured. Const: Vital Signs, click to edit/add: Vital Signs - 24 hr 03/08/23 22:41 03/08/23 22:52 03/08/23 23:00 Temperature 97.9 F Pulse Rate 99 95 Pulse Rate [Pulse Oximeter] 87 Respiratory Rate 16 Blood Pressure Blood Pressure [Ri ght Upper Arm] 138/85 Pulse Oximetry 98 98 99 Oxygen Delivery Me thod Room Air Room Air 03/08/23 23:01 03/08/23 23:15 03/08/23 23:30 Temperature Pulse Rate 97 91 96 Pulse Rate [Pulse Oximeter] Respiratory Rate Blood Pressure 124/79 Blood Pressure [Ri ght Upper Arm] Pulse Oximetry 99 97 98 Oxygen Delivery Me thod Course Course ED Course: Patient seen and examined. Case discussed with OB on-call. Vital Signs Vital signs: Initial Vital Signs Temperature 97.9 F 03/08/23 22:41 Temperature Source Temporal Artery Scan 03/08/23 22:41 Pulse Rate 87 03/08/23 22:41 Respiratory Rate 16 03/08/23 22:41 Blood Pressure 138/85 03/08/23 22:41 Blood Pressure Mean 102 03/08/23 22:41 Blood Pressure Position Sitting 03/08/23 22:41 Pulse Oximetry 98 03/08/23 22:41 Oxygen Delivery Method Room Air 03/08/23 22:41 Vital Signs Temperature 97.9 F 03/08/23 22:41 Pulse Rate 87 03/08/23 22:41 Respiratory Rate 16 03/08/23 22:41 Blood Pressure 138/85 03/08/23 22:41 Pulse Oximetry 98 03/08/23 22:41 Oxygen Delivery Method Room Air 03/08/23 22:41 Temperature 97.9 F 03/08/23 22:41 Pulse Rate 96 03/08/23 23:30 Respiratory Rate 16 03/08/23 22:41 Blood Pressure 124/79 03/08/23 23:01 Pulse Oximetry 98 03/08/23 23:30 Oxygen Delivery Method Room Air 03/08/23 22:52 Medications Administered Medications: Discontinued Medications Generic Name Dose Route Start Last Admin Trade Name Zev PRElias Reason Stop Dose Admin Labetalol HCl 100 mg 03/08/23 23:01 03/08/23 23:40 Labetalol Hcl 100 Mg Tablet PO 03/08/23 23:02 50 mg ONCE ONE Administration Medical Decision Making MDM Narrative Medical decision making narrative: Patient is a 27-year-old woman who has 2nd was complicated by late onset preeclampsia. She underwent 6 days ago. Blood pressures been under good control but she did have some 155/105 sent home tonight and is edematous. She is otherwise feeling fine. [facility] and transaminitis was again noted. I did discuss the case with OB on-call they do recommend labetalol 100 mg b.i.d. with close outpatient follow-up. All questions were answered and patient will proceed with that course and follow-up with Ob early next week. Discharge Plan Discharge Clinical Impression: Hypertension Patient Disposition: Home, Self-Care Condition: Stable Instructions: Hypertension (ED) Additional Instructions: Continue low-sodium diet Labetalol as directed Follow-up with OB next week. Activity Level: No Restrictions Discharge Diet: Regular Prescriptions: New labetalol 100 mg tablet 100 mg PO BID Qty: 30 2RF Follow Up/Referrals: Provider,Not a Local [Primary Care Provider] - Stand Alone Forms: [employer] Info Instructions
[2023-03-08 23:15] VITALS: PULSE 91; O2SAT 97
[2023-03-08 23:30] VITALS: PULSE 96; O2SAT 98
[2023-03-08] MEDS: LABETALOL HCL 100 MG TABLET PO (23:40)
== END 2023-03-08 23:41 | disposition home or self-care (01) ==
LOC: ED 23:14
PROVIDERS: Emergency Provider Internal Medicine
DX: I10 Essential (primary) hypertension (principal)
CPT/HCPCS: 99283; A9270

== ENCOUNTER 2023-03-22 14:01 | Outpatient (CLI) | payer BC, SELFPAY ==
--- NOTE | 2023-03-22 17:00 | P.LACCB_ITS ---
Consult Note - Mom Date of Visit Date of visit: 03/22/23 education sales consultant: Lina Lange Visit Code: Visit Patient's Information Phone number: [phone] : 2 Para: 2 Allergies Sulfa (Sulfonamide Antibiotics) Allergy (Unknown, Verified 03/08/23 22:48) Mother's Medical History: Medical History (Updated 03/23/23 @ 00:00 by Background Daemon) BMI 36.0-36.9,adult ?Z68.36 - Body mass index [BMI] 36.0-36.9, adult (ICD-10) PCOS (polycystic ovarian syndrome) ?E28.2 - Polycystic ovarian syndrome (ICD-10) GHTN- mag after this delivery Delivery Information Delivery type: Repeat Section Weeks Gestation: 35.5 Gestational Age: LGA Weight: 3.827 kg Discharge Weight: 3.486 kg Baby's Information Baby's Age at Visit: 18 days Baby's Provider or Clinic: Dr. Longo Jaundice: No Reason for Consult Reason for Consult: pre and post weight check Past Experience Past Experience: Yes Current Frequency of Day Feedings: every 2 - 4 hours around the clock Both Breasts: Yes (mom offers) Pumping Pumping: Yes (8 times/24 hours) Quantity Pumped: 1 - 1.5 oz each time Supplementing EMB Supplement: Yes Formula Supplement: Yes (Neosure) Baby Elimination Number of Wet Diapers a Day: almost every feeding Number of BM a Day: about every other feeding Onsite Pre-Feed weight: 3.878 kg Post-Feed weight: 3.934 kg Milk Transferred (mL): 56 Assessments/Interventions Assessments/Interventions: Met with mom and this now 18 day old baby for consult. Baby with hx of re-admit x 2 for jaundice and weight loss at 12%. She was d/c'd on 03/13 with instruction to breastfeed but then give baby 2 - 3 oz Neosure. Mom reports baby has been taking 2.5 oz Neosure every 2 - 4 hours, then nurses for about 20 minutes. She felt baby was becoming more constipated in the past week so on 03/20 she started alternating a bottle of Neosure with a bottle of EBM (her milk and donor milk) before nursing. She reports baby seems more comfortable, and her stools are now softer and more consistent. Mom is pumping 8 times/24 hours for 30 minutes and gets 1 - 1.5 oz total each time. Breasts are a little more tubular in shape, the intramammary distance is about 1.5 inches. Nipples are everted and don't flatten or retract on compression. No damage noted but mom reports they're a little sore, especially the right. She has hx of PCOS and reports her milk took about two weeks to come in fully with her first child. She's taking Liquid Gold from [employer] to help with supply. Baby has gained 44 grams/day since her PCP visit on 03/15/23 and she's now 51 grams above BW at 18 DOL. Mom denies any caput/cephalohematoma at delivery and states she has equal ROM when turning her head/moving her extremities. Baby's palate is a little elevated. Her upper lip is a little difficult to flange and the gums haley. Her tongue consistently extends past the gum line when sucking on a finger, pretty good lateralization with minimal canoeing. Her lower frenulum appears to be WNL. Mom latched baby to both sides, the latch was wide and mom was comfortable. Baby wasn't very aggressive at the breast and needed a fair amount of stimulation to stay awake. After about a 25 minute feeding she was weighed and had transferred 56 ml. She was still a little hungry so mom offered 1 oz regular formula. Mom has been measured and feels her flange size is correct. Plan: 1. Continue to nurse baby ALD, or on her current schedule of every 2 - 4 hours. Offer both sides each time and work to keep her awake and actively nursing. Suggested mom breastfeed first instead of after she bottle feeds. 2. Continue to pump up to 8 times/24 hours if it's not overwhelming. Suggested she only pump for 15 minutes and end her sessions with a few minutes of hand expression. OK to skip one night pumping so she can get a longer stretch of sleep. 3. Offer baby 1 - 2 oz EBM or regular formula after nursing sessions. Mom is comfortable with paced feeding. 4. Will f/u for a pre and post feeding weight check on 03/29/23. Meds Home Medications and Allergies Home Medications Medication Instructions Recorded Confirmed Type docosahexaenoic acid 200 mg mg PO 03/11/23 03/11/23 History capsule ( DHA) Allergies Allergy/AdvReac Type Severity Reaction Status Date / Time Sulfa (Sulfonamide Allergy Unknown Verified 03/08/23 22:48 Antibiotics)
== END 2023-03-22 14:02 | disposition home or self-care (01) ==
LOC: OB LAC 14:02
PROVIDERS: Visit Provider Obstetrics & Gynecology
DX: P92.5 Neonatal difficulty in feeding at breast (principal)
CPT/HCPCS: 99211

== ENCOUNTER 2023-04-16 15:27 | Outpatient (CLI) | payer OTHER, SELFPAY | END 2023-04-16 15:28 | disposition home or self-care (01) | PROVIDERS: Visit Provider Registered Nurse | DX: Z39.2 Encounter for routine postpartum follow-up (principal) | CPT/HCPCS: 82306; 82310; 84450; 84460 ==

== ENCOUNTER 2023-04-18 10:59 | Outpatient (CLI) | payer OTHER, SELFPAY ==
--- NOTE | 2023-04-18 11:00 | CRLHL7_ITS ---
For Patients: As a result of the Century Cures Act, medical imaging exams and procedure reports are released immediately into your electronic medical record. You may view this report before your referring provider. If you have questions, please contact your health care provider. INDICATION: Elevation of levels of liver transaminase levels COMPARISON: none TECHNIQUE: Real time young scale imaging and color Doppler analysis was performed of the right upper quadrant. FINDINGS: The patient`s liver is of normal size and has mildly echogenicity. There is a normal appearance of the hepatic IVC and proximal abdominal aorta. There is no evidence of ascites. The gallbladder is absent. The common bile duct is of normal size and measures 7 mm in diameter at the level of the jacque hepatis. The pancreas appears normal. There is no evidence of a stone or hydronephrosis within the right kidney. The right kidney measures 12.2 cm in length. IMPRESSION: Mild hepatic steatosis. Status post cholecystectomy. No biliary obstruction. Dictated by Tip Ward MD @ 04/18/2023 11:58:16 AM (Electronically Signed)
== END 2023-04-18 11:00 | disposition home or self-care (01) ==
LOC: US 10:59
PROVIDERS: Visit Provider Registered Nurse
DX: R74.01 Elevation of levels of liver transaminase levels (principal); K76.0 Fatty (change of) liver, not elsewhere classified
CPT/HCPCS: 76705

== ENCOUNTER 2023-10-24 10:49 | Outpatient (CLI) | payer OTHER, SELFPAY ==
[2023-10-24 11:44] LABS: Albumin* 4.8 g/dL (3.3-5.0)
[2023-10-24 11:46] LABS: Aspartate Amino Transferase* 26 U/L (12-35); Bilirubin Direct* 0.3 mg/dL (0.0-0.5); Bilirubin Total* 0.8 mg/dL (0.1-1.5); Iron* 83 ug/dL (37-170); Total Protein* 7.7 g/dL (6.0-8.3)
[2023-10-24 11:47] LABS: Alanine Aminotransferase* 34 U/L (4-35); Alkaline Phosphatase* 107 U/L (40-150)
[2023-10-24 11:56] LABS: Percent Iron Saturation 24 % (20-50); Total Iron Binding Capacity 341 ug/dL (265-497)
[2023-10-24 12:22] LABS: Ferritin* 44.7 ng/mL (6.24-137.0)
[2023-10-25 17:25] LABS: Alpha-1-Antitrypsin 76 mg/dL (90-200)
[2023-10-25 20:39] LABS: Anti-Nuclear Ab(ANA)IgG ELISA None Detected (None Detected)
[2023-10-26 00:38] LABS: Tissue Transglut Ab IgA <1.02 FLU (0.00-4.99)
[2023-10-26 13:34] LABS: Ceruloplasmin 28 mg/dL (16-45)
== END 2023-10-24 10:50 | disposition home or self-care (01) ==
PROVIDERS: Visit Provider Nurse Practitioner
DX: R74.8 Abnormal levels of other serum enzymes (principal); K76.0 Fatty (change of) liver, not elsewhere classified; E66.9 Obesity, unspecified; Z39.2 Encounter for routine postpartum follow-up
CPT/HCPCS: 36415; 80076; 82103; 82390; 82728; 83540; 83550; 86015; 86039; 86364

== ENCOUNTER 2024-03-17 10:17 | Outpatient (CLI) | payer OTHER, SELFPAY | END 2024-03-17 10:18 | disposition home or self-care (01) | PROVIDERS: Visit Provider Obstetrics & Gynecology | DX: N97.9 Female infertility, unspecified (principal); E28.2 Polycystic ovarian syndrome | CPT/HCPCS: 80061; 83498; 84270; 84402; 84403; 84443 ==

== ENCOUNTER 2025-02-16 12:46 | Outpatient (CLI) | payer OTHER, SELFPAY ==
[2025-02-18 17:20] LABS: HPV Source Cervix
[2025-02-25 09:19] LABS: Pap Test Screened Manually Done
== END 2025-02-16 12:47 | disposition home or self-care (01) ==
PROVIDERS: Visit Provider Registered Nurse
DX: Z12.4 Encounter for screening for malignant neoplasm of cervix (principal); N92.0 Excessive and frequent menstruation with regular cycle
CPT/HCPCS: 87624; 87625; 88141; 88142; 88175

== ENCOUNTER 2025-02-19 14:57 | Outpatient (CLI) | payer OTHER, SELFPAY ==
--- NOTE | 2025-02-19 15:00 | CRLHL7_ITS ---
For Patients: As a result of the Century Cures Act, medical imaging exams and procedure reports are released immediately into your electronic medical record. You may view this report before your referring provider. If you have questions, please contact your health care provider. INDICATION: MENORRHAGIA COMPARISON: None. TECHNIQUE: 2D young-scale and color Doppler images were acquired of the pelvis using a transabdominal and transvaginal approach. Transvaginal imaging performed to better visualize the endometrial stripe and ovaries. FINDINGS: Sonographic images demonstrate a normal size and smooth outer contour of the uterus. Uterus measures 9.2 cm in length by 4.5 cm in AP diameter by 2.2 cm in transverse dimension. The myometrium has a normal uniform echotexture. The endometrial lining measures 13.0 mm in composite thickness. The right ovary measures 4.7 x 1.9 x 2.1 cm in size and the left ovary measures 4.6 x 2.5 x 2.3 cm. The ovaries demonstrate normal arterial and venous blood flow on color Doppler analysis. There are no suspicious fluid collections within the cul-de-sac. IMPRESSION: Endometrial thickness 13.0 millimeters. Dictated by Tip Ward MD @ 02/20/2025 7:08:20 AM (Electronically Signed)
== END 2025-02-19 14:58 | disposition home or self-care (01) ==
LOC: US 14:57
PROVIDERS: Visit Provider Registered Nurse
DX: N92.0 Excessive and frequent menstruation with regular cycle (principal); R93.89 Abnormal findings on diagnostic imaging of other specified body structures
CPT/HCPCS: 76830; 76856